=== PATIENT | male | born 1955 | race Caucasian/White ===

== ENCOUNTER 2019-04-06 07:31 | Emergency (ER) | payer SELFPAY ==
[~2019-04-06] VITALS: Ht 170.2 cm; Wt 78.7 kg
[~2019-04-06 07:31] MED LIST: CLIN300C10 PO; NAPR-985 PO; OFLO5DRO46 BOTH EARS
[2019-04-06 07:33] VITALS: BP 120/62; PULSE 74; RESP 18; Ht 170.2 cm; Wt 78.7 kg
--- NOTE | 2019-04-06 08:05 | ERD ---
ER Documentation Chief Complaint Chief Complaint bilateral ear pain started 2 days ago HPI 63-year-old male presenting with bilateral ear pain that started yesterday. Patient has never had this before and has noted some drainage from bilateral ears. Denies any fevers. He has not taken medications for symptoms. Medical history is diabetes however it states he has it controlled with diet and exercise. Allergy to penicillin. Surgical history denies. Social history denies ROS All systems reviewed and are negative except as per history of present illness. Medications Home Meds Active Scripts Naproxen* (Naprosyn*) 500 Mg Tablet, 500 MG PO BID PRN for PAIN AND/OR INFLAMMATION, #30 TAB Prov:DONTAE LAKE PA-C 04/06/19 Clindamycin Hcl* (Clindamycin Hcl*) 300 Mg Capsule, 300 MG PO TID for 10 Days, CAP Prov:DONTAE LAKE PA-C 04/06/19 Ofloxacin* (Ocuflox*) 0.3%-5 Ml Ophth Drops, 1 DROP BOTH EARS QID, #1 BOTTLE Prov:DNOTAE LAKE PA-C 04/06/19 FmHx Family History: No diabetes, No coronary disease, No other Physical Exam Vitals Vital Signs Date Temp Pulse Resp B/P (MAP) Pulse Ox O2 O2 Flow FiO2 Time Delivery Rate 04/06/19 97.7 74 18 120/62 97 07:33 (81) Physical Exam GENERAL: The patient is well-appearing, well-nourished, in no acute distress HEENT: Atraumatic. Conjunctivae are pink. Pupils equal, round, and reactive to light. There is no scleral icterus. Severe swelling noted to the right external ear canal with clear drainage. Left external ear canal is erythematous and swollen however patent. No mastoid tenderness bilaterally. Positive tragal tenderness CHEST: Clear to auscultation bilaterally. There are no rales, wheezes or rhonchi. HEART: Regular rate and rhythm. No murmurs, clicks, rubs or gallops. ABDOMEN:Soft, nontender and nondistended. Good bowel sounds. No rebound or guarding. No gross peritonitis. No gross organomegaly or masses. Procedures/MDM MDM: 63-year-old male presenting with findings of otitis externa. I have low suspicion for mastoiditis. I do not feel blood work or imaging is indicated and patient will be treated with both otic and oral antibiotics. Patient is told symptoms change or worsen to return immediately to the ER. All questions answered at discharge Departure Diagnosis: Primary Impression: Otitis externa Condition: Stable Patient Instructions: External Ear Infection (Adult) Referrals: COMM[facility] YOU HAVE RECEIVED A MEDICAL SCREENING EXAM AND THE RESULTS INDICATE THAT YOU DO NOT HAVE A CONDITION THAT REQUIRES URGENT TREATMENT IN THE EMERGENCY DEPARTMENT. FURTHER EVALUATION AND TREATMENT OF YOUR CONDITION CAN WAIT UNTIL YOU ARE SEEN IN YOUR DOCTORS OFFICE WITHIN THE NEXT 1-2 DAYS. IT IS YOUR RESPONSIBILITY TO MAKE AN APPOINTMENT FOR FOLOW-UP CARE. IF YOU HAVE A PRIMARY DOCTOR --you should call your primary doctor and schedule an appointment IF YOU DO NOT HAVE A PRIMARY DOCTOR YOU CAN CALL OUR PHYSICIAN REFERRAL HOTLINE AT IF YOU CAN NOT AFFORD TO SEE A PHYSICIAN YOU CAN CHOSE FROM THE FOLLOWING [place] [facility] [address] [facility] [address] [facility] [facility] [address] [facility] [address] [facility] [address] [facility] [address] [facility]. [address] Additional Instructions: FOLLOW UP WITH YOUR PRIMARY CARE PHYSICIAN TOMORROW.Return to this facility if you are not improving as expected. DONTAE LAKE PA-C Apr 06, 2019 08:05
== END 2019-04-06 08:35 | disposition home or self-care (01) ==
LOC: FTE 07:31
DX: H60.93 Unspecified otitis externa, bilateral (principal)
CPT/HCPCS: 99283